=== PATIENT | male | born 1990 | race Caucasian/White ===

== ENCOUNTER 2018-01-10 22:55 | Emergency (ER) | payer SELFPAY ==
--- NOTE | 2018-01-11 07:39 | RAD ---
LEFT HIP 2 VIEWS: HISTORY: Assess for foreign body. FINDINGS: There is a metallic foreign body in the soft tissues of the mid to distal thigh which measures approx imately 2 x 5 mm. No osseous abnormality is seen. POS: CONSTANTINE
== END 2018-01-11 00:41 | disposition home or self-care (01) ==
LOC: ERS 22:55
DX: S71.142A Puncture wound with foreign body, left thigh, initial encounter (principal); W22.8XXA Striking against or struck by other objects, initial encounter